=== PATIENT | female | born 1940 | race Two or more races ===

== ENCOUNTER 2018-04-26 14:53 | Inpatient (IN) | payer OTHER ==
[~2018-04-26] VITALS: Ht 152.4 cm; Wt 59.4 kg
[2018-04-26] MEDS ORDERED: RESTORIL30 M1 PO (15:47)
[2018-04-26] MEDS ORDERED: SYNTHROID50 MCG PO (15:48)
[2018-04-26] MEDS ORDERED: METOPROLOL SUCC25 MG PO (15:48)
[2018-04-26] MEDS ORDERED: MULTI VITAMIN1 EACH PO (15:49)
[2018-04-26] MEDS ORDERED: CALCIUM600 MG PO (15:49)
[2018-04-26] MEDS ORDERED: PAXIL CR25 MG PO (15:49)
[2018-05-16] MEDS ORDERED: COLACE100 MG PO (14:19)
[2018-05-16] MEDS ORDERED: NEURONTIN800 MG PO (14:20)
[2018-05-16] MEDS ORDERED: PERCOCET 5-3251 EACH PO (14:21)
[2018-05-16] MEDS ORDERED: RESTORIL30 M1 PO (14:21)
[2018-05-16] MEDS ORDERED: AMOX-CLAV 875-1 EACH PO (14:21)
== END 2018-05-17 12:09 | disposition home or self-care (01) | DRG 455 ==
LOC: O/R 05-16 05:40 → OB/GYN 05-16 14:52 → SURH 05-16 15:50
PROVIDERS: ADMIT Orthopaedic Surgery Orthopaedic Surgery of the Spine
PROC: 0SG1071 Fusion of 2 or more Lumbar Vertebral Joints with Autologous Tissue Substitute, Posterior Approach, Posterior Column, Open Approach (ICD-10-PCS; 2018-05-16)
PROC: 0SG10AJ Fusion of 2 or more Lumbar Vertebral Joints with Interbody Fusion Device, Posterior Approach, Anterior Column, Open Approach (ICD-10-PCS; 2018-05-16)
PROC: 0ST20ZZ Resection of Lumbar Vertebral Disc, Open Approach (ICD-10-PCS; 2018-05-16)
PROC: 07DS3ZZ Extraction of Vertebral Bone Marrow, Percutaneous Approach (ICD-10-PCS; 2018-05-16)
PROC: 0SG10A0 Fusion of 2 or more Lumbar Vertebral Joints with Interbody Fusion Device, Anterior Approach, Anterior Column, Open Approach (ICD-10-PCS; principal; 2018-05-16 16:45)
DX: M47.26 Other spondylosis with radiculopathy, lumbar region (principal); M41.56 Other secondary scoliosis, lumbar region; M51.16 Intervertebral disc disorders with radiculopathy, lumbar region; M48.062 Spinal stenosis, lumbar region with neurogenic claudication; I10 Essential (primary) hypertension; E03.8 Other specified hypothyroidism

== ENCOUNTER → 2018-06-03 | Emergency (ER) | payer OTHER ==
[~2018-06-03] VITALS: Ht 154.9 cm; Wt 59.4 kg
[~2018-06-03] MED LIST: AMOX-CLAV 875-1 EACH PO; CALCIUM600 MG PO; COLACE100 MG PO; METOPROLOL SUCC25 MG PO; MULTI VITAMIN1 EACH PO; NEURONTIN800 MG PO; PAXIL CR25 MG PO; PERCOCET 5-3251 EACH PO; RESTORIL30 M1 PO; SYNTHROID50 MCG PO
== END | disposition left against medical advice (07) ==
LOC: ER 14:48
DX: Z53.20 Procedure and treatment not carried out because of patient's decision for unspecified reasons (principal)